=== PATIENT | male | born 1975 | race Caucasian/White ===

== ENCOUNTER 2016-12-29 22:25 | Emergency (ER) | payer BC ==
[~2016-12-29] VITALS: Ht 185.4 cm; Wt 133.8 kg
[2016-12-29] MEDS ORDERED: LISINOPRIL5 MG ORAL (22:47)
[2016-12-29 22:54] VITALS: BP 124/73
[2016-12-29] MEDS ORDERED: Surgicel 4in x 8in TOPIC ONE (23:00)
[2016-12-29] MEDS ORDERED: Norco 5mg/325mg tab ORAL ONE (23:00)
[2016-12-29] MEDS ORDERED: HYDROmorphone 1mg/ml Carpuject IM ONE (23:30)
[2016-12-29] MEDS ORDERED: KEFLEX500 MG ORAL (23:58)
[2016-12-29] MEDS ORDERED: HYDROCODON-ACE1 EA15 ORAL (23:58)
--- NOTE | 2016-12-29 23:58 | Emergency Room Report ---
History of Present Illness General Chief Complaint: Laceration Source: Patient Present Illness HPI This is a 41-year-old male who is right-hand dominant. He works as a chef & owner. He was in [place] for a celebrate anatoliy event. He was doing a cooking demonstration and cut the tip of his left index finger. He was bleeding profusely. He could not stop the bleeding so he put tissue and superglue on it. He continue cooking and she was able to come here several hours later. Throbbing in pain over the left index finger. Tetanus up-to-date. Bleeding stopped. No other injury. Allergies: Coded Allergies: No Known Allergies (Unverified , 12/29/16) Patient History Past Medical History: see triage record, old chart reviewed Past Surgical History: none Pertinent Family History: none Social History: Reports: alcohol use - Social Immunizations: UTD Reviewed Nursing Documentation: PMH: Agreed, PSxH: Agreed Nursing Documentation-PMH Past Medical History: No History, Except For Hx Hypertension: Yes Review of Systems Eye: Denies: blurred vision, eye pain ENT: Denies: ear pain, nose congestion, throat swelling Respiratory: Denies: cough, shortness of breath Cardiovascular: Denies: chest pain, palpitations Gastrointestinal: Denies: abdominal pain, diarrhea, nausea, vomiting Musculoskeletal: Denies: back pain, joint pain Skin: Denies: rash Neurological: Denies: headache, numbness Endocrine: Denies: increased thirst, increased urine Hematologic/Lymphatic: Denies: easy bruising All Other Systems: negative except mentioned in HPI Physical Exam Vital Signs Date Time Temp Pulse Resp B/P Pulse Ox O2 Delivery O2 Flow Rate FiO2 12/29/16 22:40 97.9 64 20 124/73 96 Room Air vitals normal Sp02 EP Interpretation: reviewed, normal General Appearance: well appearing, no apparent distress, alert Head: normocephalic, atraumatic Eyes: bilateral eye EOMI, bilateral eye PERRL ENT: hearing grossly normal, normal pharynx Neck: full range of motion, supple, no meningismus Respiratory: chest non-tender, lungs clear, normal breath sounds Cardiovascular #1: regular rate, rhythm, no murmur Gastrointestinal: normal bowel sounds, non tender, no mass, no organomegaly, no bruit, non-distended Musculoskeletal: back normal, gait/station normal, normal range of motion, other - Left index finger: He has tip avulsion of the nail with injury to the nailbed. This measure about 4 mm. No tendon laceration. No foreign body. Full range of motion of the MCP, PIP, DIP joints. Sensation normal. Neurologic: alert, oriented x3 Psychiatric: mood/affect normal Skin: warm/dry Procedures Laceration/Wound Repair Laceration/Wound Repair : Consent: Verbal Wound Location: upper extremity Wound's Depth, Shape: nail-avulsed Wound Length (cm): 1 Wound Explored: clean Irrigated w/ Saline (ccs): 500 Anesthesia: 1% Lidocaine Volume Anesthetic (ccs): 2 Patient Tolerated: Well Complications: None Progress I did a digital block with 1% lidocaine without epinephrine. After anesthesia, I removed the superglue and tissue. There was oozing of the nail bed. Part of the nail was avulsed. I placed Surgicel and put a pressure dressing on it. Bleeding stopped. She tolerated procedure without a problem. Medical Decision Making Diagnostic Impression: Primary Impression: Fingernail avulsion, partial Qualified Codes: S61.309A - Unspecified open wound of unspecified finger with damage to nail, initial encounter ER Course Patient with fingernail avulsion and nailbed injury. Nothing to be sutured. Bleeding controlled. We'll discharge home. We'll put on antibiotics. Last Vital Signs Date Time Temp Pulse Resp B/P Pulse Ox O2 Delivery O2 Flow Rate FiO2 12/29/16 22:54 97.9 20 124/73 96 Room Air 12/29/16 22:40 64 Status: improved Disposition: HOME, SELF-CARE Condition: Stable Scripts Cephalexin* (KEFLEX*) 500 Mg Capsule 500 MG ORAL TID, #21 CAP 0 Refills Prov: LISSY DUONG M.D. 12/29/16 Hydrocodone/Acetaminophen 5-325* (HYDROCODONE/ACETAMINOPHEN 5-325*) 1 Each Tablet 1 TAB ORAL Q6H Y for For Pain, #15 TAB 0 Refills Prov: LISSY DUONG M.D. 12/29/16 Referrals: NON PHYSICIAN (PCP) Patient Instructions: Nonsutured Laceration Care Additional Instructions: Followup with your DrRoss in 2-3 days for recheck. Return if symptom worsen. LISSY DUONG M.D. Dec 29, 2016 23:58
[2016-12-30] MEDS ORDERED: Cephalexin 500mg cap ORAL ONE
[2016-12-30 00:15] VITALS: BP 124/73
== END 2016-12-30 00:16 | disposition home or self-care (01) ==
LOC: EMR 23:00
DX: S61.311A Laceration without foreign body of left index finger with damage to nail, initial encounter (principal); W26.0XXA Contact with knife, initial encounter; Y92.89 Other specified places as the place of occurrence of the external cause; I10 Essential (primary) hypertension
CPT/HCPCS: 12001; 96372; 99284; J1170